=== PATIENT | male | born 1990 | race Caucasian/White ===

== ENCOUNTER → 2016-07-02 | Outpatient (CLI) | payer BC ==
--- NOTE | 2016-07-02 15:45 | DIAGNOSTIC IMAGING REPORT ---
LEFT KNEE 4 VIEWS CLINICAL HISTORY: Chronic left knee pain. FINDINGS: AP, lateral, tunnel, and sunrise views of the left knee are compared to study dated 08/28/2015. The skeletal structures are well mineralized. No fracture is seen. The joint spaces of the knee are well-maintained. No osteochondral defect is identified on the tunnel image. There is no significant joint effusion. The overlying soft tissues are within normal limits. IMPRESSION: No acute bony abnormality is seen in the left knee. Electronically signed by: Cristofer Thompson M.D. 07/02/2016 3:44 PM Dictated Date/Time: 07/02/2016 3:42 PM
== END | disposition home or self-care (01) ==
LOC: C.RDSM 15:32
PROVIDERS: ATTEND Family Medicine
DX: M25.562 Pain in left knee (principal)